=== PATIENT | male | born 1970 | race Caucasian/White ===

== ENCOUNTER 2016-09-03 19:56 | Inpatient (IN) | payer OTHER ==
--- NOTE | ~2016-09-03 | HP ---
History And Physical [facility] [address] [place]. [address] NAME: DENNY FLOYD : 68 STATUS : ADM Rojas PAT#: [id number] AGE: 45 ADM/REG DATE : 09/03/16 MR#: [id number] REPORT SERV DATE: 09/04/16 DICTATED BY: LUCY NUÑEZ DATE: 09/03/16 REPORT STATUS : Draft TRANSCRIBED BY: MODTheo DATE: 09/03/16 DATE OF ADMISSION: 09/03/2016 POINT OF ENTRY: [facility] Emergency Department. PRIMARY CARE PHYSICIAN: None at this time. CHIEF COMPLAINT: Right lower extremity pain, redness, and swelling. HISTORY OF PRESENT ILLNESS: Mr. Floyd is a 45-year-old gentleman with no significant previous medical history who presents to the emergency room today with an approximately five to six-day history of right lower extremity pain, swelling, redness as well as warmth consistent with a right lower extremity cellulitis. The patient states that he was in an art show on Thursday evening when he started to notice some right groin and inguinal discomfort. Shortly later that evening when he was at home, he started to notice pain as well as swelling, redness, and warmth in his right lower extremity. He went to an urgent care center Thursday morning and was referred to [facility] Emergency Department where he was diagnosed with right lower extremity cellulitis, was given an unknown IV antibiotic x1, and then discharged on oral Keflex. The patient states for compliance with his oral Keflex since then. Despite compliance with antibiotics, the warmth, pain, swelling, and redness has not improved, but the patient denies it worsening or spreading more proximally. Initially on Thursday and Thursday, he did feel some subjective fevers and chills. Those have since passed but has reported some recent episodes of diaphoresis in the last 24-36 hours. Initial evaluation in the emergency department notable for afebrile. Heart rate is mildly elevated at 101. White count is within normal limits. Right lower extremity Doppler was negative for DVT. The patient was started on IV vancomycin and admitted to the Hospitalist Service. REVIEW OF SYSTEMS: Comprehensive review of system otherwise negative unless listed in history of present illness. PREVIOUS MEDICAL HISTORY: None. SURGICAL HISTORY: Left meniscus repair. ALLERGIES: NO KNOWN DRUG ALLERGIES. HOME MEDICATIONS: 1. Aspirin 325 mg p.r.n. pain. 2. Keflex 100 mg q.8 hours. 3. [place] 10/325 one tab q.6 hours. 4. Advil 200 mg daily p.r.n. History And Physical [facility] [address] [place]. [address] NAME: DENNY FLOYD : 68 STATUS : ADM Rojas PAT#: [id number] AGE: 45 ADM/REG DATE : 09/03/16 MR#: [id number] REPORT SERV DATE: 09/04/16 DICTATED BY: LUCY NUÑEZ DATE: 09/03/16 REPORT STATUS : Draft TRANSCRIBED BY: MODL DATE: 09/03/16 SOCIAL HISTORY: Denies any tobacco, alcohol, or illicits. 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 FAMILY MEDICAL HISTORY: Mother is healthy. Father with diabetes. Siblings otherwise healthy. LABS AND IMAGIN. White count is 8.6, hemoglobin 15.3, hematocrit 45.5, and platelet count is 207. 2. Sodium is 140, potassium 3.4, chloride 102, carbon dioxide 28, BUN 18, creatinine 0.88, glucose is 197, calcium is 8.8, protein 7.6, albumin 3.4, bilirubin is 0.9, ALT is 40, AST 16, and alkaline phosphatase is 88. 3. Lactic acid is pending. 4. Lower extremity Doppler is negative for DVT per technical specialist verbal report. PHYSICAL EXAMINATION: VITAL SIGNS: Temperature is 98.2 degrees Fahrenheit, pulse is 101, respirations 16, saturating 95% on room air, and blood pressure 136/77. GENERAL: The patient is awake, alert, in no acute distress, resting comfortably in bed. He is a well-developed, well-nourished, male. Family is at bedside. HEENT: Atraumatic and normocephalic. Moist mucous membranes. Pupils equal, round, reactive to light and accommodation. Extraocular eye movements are intact. No scleral icterus. NECK: No jugular venous distention. No carotid bruits. CARDIAC: Regular rate and rhythm. No murmurs, rubs, or gallops. Normal S1, normal S2. LUNGS: Clear to auscultation bilaterally. No wheezes, rhonchi, or crackles. ABDOMEN: Soft, nontender, nondistended. Good bowel sounds. No rebound, guarding, or rigidity. EXTREMITIES: Left lower extremity is warm, perfused. No cyanosis, clubbing, or edema. Right lower extremity from the area just distal to the knee joint there is very intense erythema with associated swelling, warmth, and tenderness on palpation. I do not appreciate any lymphangitic spread proximally or any focal fluid collection or palpable abscess, and there is no obvious areas of purulent drainage or superficial skin breakdown. SKIN: Warm and dry except for noted above. PSYCH: Affect appropriate. NEURO: Alert and oriented x3. Cranial nerves 2 through 12 grossly intact. Speech is normal. Gait not assessed. ASSESSMENT AND PLAN: Mr. Floyd is a 45-year-old gentleman who presents with right lower extremity cellulitis who has failed outpatient medical therapy. PROBLEM LIST: 1. Right lower extremity cellulitis with failed outpatient medical therapy. 2. Right lower extremity cellulitis. We will admit patient to the Hospitalist Service for IV vancomycin therapy as it appears that he has failed outpatient medical therapy. Of note, a lower extremity Doppler is negative for DVT for alternative explanation as to why he is not responding to his outpatient antibiotic therapy. We will have the patient elevate his legs, follow up lactic acid level, as well as blood cultures that were obtained here in the emergency department. Provide supportive care with History And Physical [address] [address] NAME: DENNY FLOYD : 68 STATUS : ADM Rojas PAT#: [id number] AGE: 45 ADM/REG DATE : 09/03/16 MR#: [id number] REPORT SERV DATE: 09/04/16 DICTATED BY: LUCY NUÑEZ DATE: 09/03/16 REPORT STATUS : Draft TRANSCRIBED BY: MODL DATE: 09/03/16 antiemetics and pain control as necessary. 3. DVT prophylaxis. Lovenox subcutaneous. CODE STATUS: The patient wishes to be full code. PINKY/BARRETTL Lucy Nuñez MD / [id number] CC: Nell Rogers MD
--- NOTE | ~2016-09-03 | DS ---
Discharge Summary [facility] [address] [place]. [address] NAME: DENNY FLOYD : 68 STATUS : DIS IN PAT#: [id number] AGE: 45 ADM/REG DATE : 09/03/16 MR#: [id number] REPORT SERV DATE: 09/09/16 DICTATED BY: FLO HUTCHINSON DATE: 09/08/16 REPORT STATUS : Draft TRANSCRIBED BY: MODL DATE: 09/08/16 ADMISSION DATE: 09/03/2016 DISCHARGE DATE: DISCHARGE DIAGNOSES: Right lower extremity cellulitis. INVASIVE PROCEDURES DURING THIS HOSPITALIZATION: None. CONSULTANTS DURING THIS HOSPITALIZATION: None. BRIEF HISTORY OF PRESENT ILLNESS: The patient is a 45-year-old, white male, admitted through the emergency room for failing outpatient therapy for right lower extremity cellulitis. For detailed history and physical exam, please see note dictated by Dr. Mike Espinoza on 09/03/2016. HOSPITAL COURSE: After being admitted to the hospital, this patient was cultured. He had imaging studies done. These all remained negative. For the right lower extremity cellulitis, he was started on IV vancomycin. I saw him on 09/05. This patient will continue to be on vancomycin. I added Cleocin and he has received 4 days of IV Cleocin along with vancomycin. His leg has significantly improved. He feels better with this. His fever has abated. His white count is normal. At this time it is reasonable to change him to oral Duricef to finish a 14-day course of antibiotics. We have given him a support stocking. He needs to keep his leg elevated for most part of the day and followup with primary care physician in 7 to 10 days. He remained stable otherwise and is being discharged in stable condition. DISCHARGE DISPOSITION: Home. DISCHARGE ACTIVITY: As tolerated but keep leg elevated when sitting majority of the day if possible. DISCHARGE DIET: Low-sodium diet. DISCHARGE MEDICATIONS: 1. Duricef 1 g p.o. b.i.d. for 9 more days. 2. Boncarbo 5/325 one tablet q.6 p.r.n. for pain, #18 with no refills. 3. Ibuprofen 200 mg p.o. daily p.r.n. for pain. 4. Aspirin 325 mg p.o. daily p.r.n. DISCHARGE FOLLOWUP: The patient to establish with a primary care physician in the outpatient setting. More than 30 minutes spent planning this patient's discharge, reconciling medications, writing prescriptions, discussing hospital care, and followup with the patient. Discharge Summary [facility] [id number] [place] [address] NAME: DENNY FLOYD : 68 STATUS : DIS IN PAT#: [id number] AGE: 45 ADM/REG DATE : 09/03/16 MR#: [id number] REPORT SERV DATE: 09/09/16 DICTATED BY: FLO HUTCHINSON DATE: 09/08/16 REPORT STATUS : Draft TRANSCRIBED BY: PROSPER DATE: 09/08/16 SV/PROSPER Flo Hutchinson M.D. / [id number] CC: Nell Rogers MD
[2016-09-03 19:42] LABS: BASOPHILS 0.2 %; BASOPHILS ABSOLUTE 0.02 10/3/uL (0.0-0.16); EOSINOPHILS 0.9 %; EOSINOPHILS ABSOLUTE 0.08 10/3/uL (0.0-0.53); HEMATOCRIT 45.5 % (40.0-51.0); HEMOGLOBIN 15.3 g/dL (13.6-17.8); IMMATURE GRANULOCYTES 0.6 %; IMMATURE GRANULOCYTES ABSOLUTE 0.05 10/3/uL (0.0-0.11); LYMPHOCYTES ABSOLUTE 2.24 10/3/uL (0.67-4.30); MEAN CORPUS HGB CONC 33.6 g/dL (32.0-36.0); MEAN CORPUSCULAR HEMOGLOB 29.1 pg (26.0-34.0); MEAN CORPUSCULAR VOLUME 86.7 fL (80-100); MEAN PLATELET VOLUME 9.1 fL (9.2-13.0); MONOCYTES 11.9 %; MONOCYTES ABSOLUTE 1.03 10/3/uL (0.21-1.20); NEUTROPHILS 60.4 %; PLATELET COUNT 209 10/3/uL (150-400); RBC DISTRIBUTION WIDTH 13.4 % (12.0-16.0); RED CELL COUNT 5.25 10/6/uL (4.7-6.1); WHITE BLOOD CELLS 8.6 10/3/uL (4.5-10.5)
[2016-09-03 19:45] LABS: MANUAL DIFF NO %
[~2016-09-03 19:56] MED LIST: K500 PO; NORCO1 TAB PO
[2016-09-03] MEDS ORDERED: ADVIL PO (19:57)
[2016-09-03 19:58] LABS: A/G RATIO 0.8 (0.7-1.9); ALBUMIN 3.4 G/DL (3.5-5.0); ALKALINE PHOSPHATASE 88 U/L (45-117); BUN (BLOOD UREA NITROGEN) 18 MG/DL (6-23); CALCIUM, SERUM 8.8 MG/DL (8.5-10.4); CHLORIDE, SERUM 102 MMOL/L (96-112); CO2 (CARBON DIOXIDE) 28 MMOL/L (24-34); CREATININE 0.88 MG/DL (0.70-1.30); GFR AFRICAN AMERICAN 119 ML/MIN (>=60); GFR NON AFRICAN AMERICAN 103 ML/MIN (>=60); GLOBULIN 4.2 G/DL (2.5-4.1); GLUCOSE, SERUM 97 MG/DL (60-99); POTASSIUM, SERUM 3.4 MMOL/L (3.5-5.3); SGOT(AST) 16 U/L (5-40); SGPT(ALT) 40 U/L (5-65); SODIUM, SERUM 140 MMOL/L (135-148); TOTAL BILIRUBIN 0.9 MG/DL (0-1.2); TOTAL PROTEIN 7.6 G/DL (6.0-8.5)
[2016-09-03] MEDS ORDERED: ASA5GR PO (19:58)
[2016-09-04 04:40] LABS: BASOPHILS 0.3 %; BASOPHILS ABSOLUTE 0.02 10/3/uL (0.0-0.16); EOSINOPHILS 1.5 %; EOSINOPHILS ABSOLUTE 0.11 10/3/uL (0.0-0.53); HEMATOCRIT 41.3 % (40.0-51.0); HEMOGLOBIN 14.2 g/dL (13.6-17.8); IMMATURE GRANULOCYTES 0.5 %; IMMATURE GRANULOCYTES ABSOLUTE 0.04 10/3/uL (0.0-0.11); LYMPHOCYTES 29.8 %; LYMPHOCYTES ABSOLUTE 2.18 10/3/uL (0.67-4.30); MEAN CORPUS HGB CONC 34.4 g/dL (32.0-36.0); MEAN CORPUSCULAR HEMOGLOB 29.9 pg (26.0-34.0); MEAN CORPUSCULAR VOLUME 86.9 fL (80-100); MONOCYTES 13.3 %; MONOCYTES ABSOLUTE 0.97 10/3/uL (0.21-1.20); NEUTROPHILS 54.6 %; PLATELET COUNT 201 10/3/uL (150-400); RED CELL COUNT 4.75 10/6/uL (4.7-6.1); WHITE BLOOD CELLS 7.3 10/3/uL (4.5-10.5)
[2016-09-04 04:41] LABS: MANUAL DIFF NO %
[2016-09-04 04:54] LABS: BUN (BLOOD UREA NITROGEN) 17 MG/DL (6-23); CALCIUM, SERUM 8.6 MG/DL (8.5-10.4); CHLORIDE, SERUM 106 MMOL/L (96-112); CO2 (CARBON DIOXIDE) 26 MMOL/L (24-34); GFR AFRICAN AMERICAN 124 ML/MIN (>=60); GFR NON AFRICAN AMERICAN 107 ML/MIN (>=60); GLUCOSE, SERUM 98 MG/DL (60-99); SODIUM, SERUM 141 MMOL/L (135-148)
[2016-09-06 05:36] LABS: ALBUMIN 2.8 G/DL (3.5-5.0); BUN (BLOOD UREA NITROGEN) 15 MG/DL (6-23); CALCIUM, SERUM 8.6 MG/DL (8.5-10.4); CHLORIDE, SERUM 104 MMOL/L (96-112); CO2 (CARBON DIOXIDE) 26 MMOL/L (24-34); GFR AFRICAN AMERICAN 118 ML/MIN (>=60); GFR NON AFRICAN AMERICAN 102 ML/MIN (>=60); GLUCOSE, SERUM 89 MG/DL (60-99); PHOSPHORUS, SERUM 3.1 MG/DL (2.5-4.5); SODIUM, SERUM 141 MMOL/L (135-148)
[2016-09-06 05:46] LABS: BASOPHILS 0.3 %; BASOPHILS ABSOLUTE 0.02 10/3/uL (0.0-0.16); EOSINOPHILS ABSOLUTE 0.14 10/3/uL (0.0-0.53); HEMATOCRIT 42.2 % (40.0-51.0); HEMOGLOBIN 14.4 g/dL (13.6-17.8); IMMATURE GRANULOCYTES 0.6 %; IMMATURE GRANULOCYTES ABSOLUTE 0.04 10/3/uL (0.0-0.11); LYMPHOCYTES ABSOLUTE 2.33 10/3/uL (0.67-4.30); MANUAL DIFF NO %; MEAN CORPUS HGB CONC 34.1 g/dL (32.0-36.0); MEAN CORPUSCULAR HEMOGLOB 29.5 pg (26.0-34.0); MEAN CORPUSCULAR VOLUME 86.5 fL (80-100); MONOCYTES 9.5 %; MONOCYTES ABSOLUTE 0.67 10/3/uL (0.21-1.20); NEUTROPHILS 54.6 %; NEUTROPHILS ABSOLUTE 3.86 10/3/uL (2.02-8.40); PLATELET COUNT 292 10/3/uL (150-400); RBC DISTRIBUTION WIDTH 12.9 % (12.0-16.0); RED CELL COUNT 4.88 10/6/uL (4.7-6.1); WHITE BLOOD CELLS 7.1 10/3/uL (4.5-10.5)
[2016-09-07 06:58] LABS: BASOPHILS 0.3 %; BASOPHILS ABSOLUTE 0.02 10/3/uL (0.0-0.16); EOSINOPHILS 1.7 %; EOSINOPHILS ABSOLUTE 0.12 10/3/uL (0.0-0.53); HEMATOCRIT 42.4 % (40.0-51.0); HEMOGLOBIN 14.4 g/dL (13.6-17.8); IMMATURE GRANULOCYTES 0.1 %; IMMATURE GRANULOCYTES ABSOLUTE 0.01 10/3/uL (0.0-0.11); LYMPHOCYTES 33.9 %; LYMPHOCYTES ABSOLUTE 2.39 10/3/uL (0.67-4.30); MANUAL DIFF NO %; MEAN CORPUSCULAR HEMOGLOB 29.1 pg (26.0-34.0); MEAN CORPUSCULAR VOLUME 85.7 fL (80-100); MEAN PLATELET VOLUME 8.5 fL (9.2-13.0); MONOCYTES 7.4 %; MONOCYTES ABSOLUTE 0.52 10/3/uL (0.21-1.20); NEUTROPHILS 56.6 %; PLATELET COUNT 315 10/3/uL (150-400); RBC DISTRIBUTION WIDTH 13.2 % (12.0-16.0); RED CELL COUNT 4.95 10/6/uL (4.7-6.1); WHITE BLOOD CELLS 7.1 10/3/uL (4.5-10.5)
[2016-09-07 14:34] LABS: CREATININE 0.86 MG/DL (0.70-1.30)
[2016-09-08 05:55] LABS: BASOPHILS 0.3 %; BASOPHILS ABSOLUTE 0.02 10/3/uL (0.0-0.16); EOSINOPHILS 1.5 %; EOSINOPHILS ABSOLUTE 0.11 10/3/uL (0.0-0.53); HEMATOCRIT 42.3 % (40.0-51.0); HEMOGLOBIN 14.3 g/dL (13.6-17.8); IMMATURE GRANULOCYTES 0.1 %; IMMATURE GRANULOCYTES ABSOLUTE 0.01 10/3/uL (0.0-0.11); LYMPHOCYTES 33.6 %; LYMPHOCYTES ABSOLUTE 2.39 10/3/uL (0.67-4.30); MEAN CORPUS HGB CONC 33.8 g/dL (32.0-36.0); MEAN CORPUSCULAR HEMOGLOB 28.8 pg (26.0-34.0); MEAN CORPUSCULAR VOLUME 85.3 fL (80-100); MEAN PLATELET VOLUME 8.7 fL (9.2-13.0); MONOCYTES 6.5 %; MONOCYTES ABSOLUTE 0.46 10/3/uL (0.21-1.20); NEUTROPHILS ABSOLUTE 4.13 10/3/uL (2.02-8.40); PLATELET COUNT 322 10/3/uL (150-400); RBC DISTRIBUTION WIDTH 13.1 % (12.0-16.0); RED CELL COUNT 4.96 10/6/uL (4.7-6.1); WHITE BLOOD CELLS 7.1 10/3/uL (4.5-10.5)
[2016-09-08 06:01] LABS: MANUAL DIFF NO %
[2016-09-08 06:16] LABS: ALBUMIN 2.9 G/DL (3.5-5.0); BUN (BLOOD UREA NITROGEN) 15 MG/DL (6-23); CALCIUM, SERUM 8.6 MG/DL (8.5-10.4); CHLORIDE, SERUM 104 MMOL/L (96-112); CO2 (CARBON DIOXIDE) 25 MMOL/L (24-34); CREATININE 0.86 MG/DL (0.70-1.30); GFR AFRICAN AMERICAN 121 ML/MIN (>=60); GFR NON AFRICAN AMERICAN 104 ML/MIN (>=60); GLUCOSE, SERUM 86 MG/DL (60-99); POTASSIUM, SERUM 3.8 MMOL/L (3.5-5.3); SODIUM, SERUM 139 MMOL/L (135-148)
[2016-09-08 06:17] LABS: PHOSPHORUS, SERUM 4.2 MG/DL (2.5-4.5)
[2016-09-08] MEDS ORDERED: NORCO1 TA1 PO (15:14)
[2016-09-08] MEDS ORDERED: DURICEF PO (15:15)
== END 2016-09-08 17:58 | disposition home or self-care (01) | DRG 603 ==
LOC: ER 19:56 → CDU1 21:40 → CDU2 22:31 → 4EA 09-06 10:58
PROVIDERS: Internal Medicine; Nurse Practitioner Acute Care
DX: L03.115 Cellulitis of right lower limb (principal)
CPT/HCPCS: 80048; 80053; 80069; 80202; 82565; 83605; 85025; 87040; 93971; 96374; 99285; A9270-GY; J3370